=== PATIENT | female | born 1960 | race Caucasian/White ===

== ENCOUNTER 2023-12-23 11:35 | Outpatient (AMB) | payer MEDICAID, SELFPAY ==
--- NOTE | 2023-12-23 11:09 | PD.ORTHTELE ---
Med/Allergies Allergies & Medications Allergies No Known Allergies Allergy (Verified 12/23/23 11:09) Medication Reconciliation docusate sodium 100 mg capsule (Colace) 100 mg PO DAILY #0 caps 08/19/16 [History Confirmed 12/23/23] lovastatin 20 mg tablet 20 mg PO QPM 05/10/17 [History Confirmed 12/23/23] doxepin 50 mg capsule 100 mg PO HS 11/15/17 [History Confirmed 12/23/23] Subjective Visit Visit for: follow up visit and x-rays Immunization / Flu Flu Vaccine in the Last 12 Months: No Flu Vaccine Exclusion Criteria: No Exclusion Criteria History of Present Illness Chief complaint: XRAY RESULTS [place] is a 63-year-old female who is approximately 2 years out from surgery. She has problems with her right knee. She had difficulty coming into my office as she went to my prior office with my prior employer and had difficulty getting in. She is now 2 years out and she reports that her knee Goes outward and she has anterior knee pain. Personal History Red flag PMH: smoker Pain Pain level (0-10): 6 Pain duration: COMES AND GOES Pain location: inside (medial) Pain quality: aching Pain timing: increases with activity Associated signs & symptoms: none Ambulatory data Ambulatory device: none Treatments Improvement with previous injections: No Improvement with PT: No Improvement with NSAIDS: no Review of Systems Review of Systems: All systems negative unless otherwise noted in HPI. 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 The components do appear to be adequately rotated. We obtained an ESR and CRP and they Are normal. I obtained x-rays. The patella reduced is reduced in extension but during the tunnel view it appears it is dislocated laterally. I discussed with her that patella maltracking is a very difficult problem. We discussed that although the components look good, the patella is tracking laterally and this is a soft tissue related issue. We would likely try a lateral retinacular release as well as medial imbrication. I discussed with her that she will be walks in extension for at least 4 to 6 weeks after this. I do not think a revision is needed right now of her components as the components look to be in great position on the CT scan. Office Procedures GNS Level of Care Nursing/Assessment Patient Status: Established Patient Nursing Assessment/Reassesment: Medication Reconciliation, Update PMH in EMR and Vital Signs Coordination of Care: Complex Care and Chronic Disease 1-5, Education Complex Pt/Fam, Consent,records obtained, informed consent, 1 Ins Authorization, Lab and Imaging orders, Results/Orders obtained and Staff clarify orders Established Patient Charge Established Patient Point Assignment: 125 Telehealth Telemed Phone/Video with patient at home & Dr,PA,SCREW DRIVER OPERATOR: Yes
== END 2023-12-23 11:59 | disposition home or self-care (01) ==
LOC: HODSRG 11:35
PROVIDERS: PCP Family Medicine; Referring Provider Family Medicine; Supervising Provider Orthopaedic Surgery Adult Reconstructive Orthopaedic Surgery; Visit Provider Orthopaedic Surgery Adult Reconstructive Orthopaedic Surgery
DX: M22.8X1 Other disorders of patella, right knee (principal); Z96.659 Presence of unspecified artificial knee joint
CPT/HCPCS: 99212; G0463

== ENCOUNTER 2024-02-01 10:53 | Outpatient (AMB) | payer MEDICAID, SELFPAY ==
[2024-02-01 11:26] VITALS: BP 116/82; PULSE 93; RESP 18; TEMP 36.4; O2SAT 98; BMI 32.1
--- NOTE | 2024-02-01 11:26 | PD.ORTHCLVIS ---
Vital signs 02/01/24 11:26 Height 1.65 m Height Method Stated Weight 87.628 kg Weight Measurement Method Standing Scale BMI 32.1 BP 116/82 Blood Pressure Source Automatic Cuff Blood Pressure Location Left Upper Arm Position Sitting Respiration 18 Pulse 93 Pulse Source Monitor Temp 97.6 F Temp Source Oral Pulse Oximetry (%) 98 Oxygen Delivery Method Room Air Med/Allergies Allergies & Medications Allergies No Known Allergies Allergy (Verified 01/10/24 13:13) Subjective Visit Visit for: follow up visit, post op #1 and knee Immunization / Flu Flu Vaccine in the Last 12 Months: No Flu Vaccine Exclusion Criteria: Already Received History of Present Illness Chief complaint: PT HERE IN OFFICE FOR POST OP KNEE SURGERY Patient is doing well status post medial imbrication lateral release. She is doing well. She was wearing a knee immobilizer for 3 months. She has been doing gentle range of motion and has minimal pain. She is happy with how her knee looks cosmetically compared to before Pain Pain level (0-10): 9 Pain duration: CONSTANT Pain location: inside (medial), outside (lateral), anterior and posterior Pain quality: sharp Pain timing: night Associated signs & symptoms: stiffness Ambulatory data Ambulatory device: other (specify) (WEARING BRACE) Review of Systems Review of Systems: All systems negative unless otherwise noted in HPI. Exam Exam Patient is in no acute distress and is cooperative with the examination today. Breathing is nonlabored. Patient has a normal mood and affect. The patient has a gait that is Antalgic Bilateral extremities were evaluated and demonstrates sensation intact to light touch. Palpable pedal pulses are present. No significant edema is present. Bilateral hips were examined. The patient has no pain with log roll of the hips. Internal rotation to 30 degrees and external rotation to 30 degrees is painless. Negative FADIR. Left knee was examined today. The left knee is in reasonable alignment. Range of motion from 0-120 degrees. Knee is stable to varus and valgus as well as AP translation with <5mm. Patient has a negative McMurrays. There is no pain with patellofemoral compression and no crepitus noted. The knee is nontender to palpation. The right knee was also examined. Right knee incisions clean dry intact. Patella tracks centrally Assessment and Plan Problem List (1) Patellar maltracking: Status: Acute Plan: Patient is doing well status post right knee medial imbrication lateral lease. She is doing well. She should continue to work with home exercises at home. We were not sent her to formal physical therapy at this time because she is doing well and is walking well Office Procedures GNS Level of Care Nursing/Assessment Patient Status: Established Patient Nursing Assessment/Reassesment: BP Monitoring, Medication Reconciliation, Update PMH in EMR and Vital Signs Coordination of Care: Complex Care and Chronic Disease 1-5, Consent,records obtained, informed consent, Lab and Imaging orders and Results/Orders obtained Established Patient Charge Established Patient Point Assignment: 95 Established Patient Point Charge: EP Level 3 (80-115) Past Medical History Past Medical History Have you ever been diagnosed with any of the following: Neurological Problems Parkinson's Disease: No Seizures: No Cardiology Problems Hypercholesterolemia: Yes Congestive Heart Failure: No Respiratory Problems Chronic Obstructive Pulmonary Disease (COPD): No Smoking: Yes (VAPES) Smoking Exposure: Yes Stomache/Intestinal Problems Gastrointestinal Bleed: No Ulcerative Colitis: Yes Diverticulitis: Yes Hemorrhoids: Yes (TAKES MED) Obesity: Yes Genital/Urinary Problems Renal Disease: No Reproductive Problems Pelvic Inflammatory Disease: No Previous Pregnancies: Yes (X4) Musculoskeletal Problems Arthritis: Yes Carpal Tunnel Syndrome: Yes Fractures: Yes (FELL OFF HORSE 07/09 HAD PUNCTURED LUNG HOSP,FX RIBS) Endocrine Problems Diabetes Mellitus Type 1: No Diabetes Mellitus Type 2: No Psychologic Problems Depression: Yes Anxiety: Yes Other Problems Hospitalization: Yes (07/09 FELL OFF HORSE) Falls: Yes (yes becouse of right knee) Blood Transfusions: No Blood Transfusion Reaction: No Anesthesia Reactions: No MRSA: No Chicken Pox: Yes Cancer: No Surgical History Total Knee Replacement: Yes (RIGHT (03/2021)) Hysterectomy: Yes (ALANA SALP)
== END 2024-02-01 11:35 | disposition home or self-care (01) ==
LOC: HODSRG 10:53
PROVIDERS: PCP Family Medicine; Referring Provider Family Medicine; Supervising Provider Orthopaedic Surgery Adult Reconstructive Orthopaedic Surgery; Visit Provider Orthopaedic Surgery Adult Reconstructive Orthopaedic Surgery
DX: Z98.890 Other specified postprocedural states (principal); E78.00 Pure hypercholesterolemia, unspecified
CPT/HCPCS: 99213; G0463

== ENCOUNTER → 2024-02-21 | Outpatient (CLI) | payer MEDICAID, SELFPAY ==
--- NOTE | 2024-02-21 12:53 | XR_ITS ---
Examination: Right knee 2 views Technique one AP lateral right knee standing 2 views Exam date and time: February 21, 2024 1317 hours INDICATIONS: Right knee replacement January 10, 2024 FINDINGS: Total right knee arthroplasty. Satisfactory alignment. Moderate osteopenia. No fracture IMPRESSION:: Total right knee arthroplasty with satisfactory alignment
== END | disposition home or self-care (01) ==
LOC: CDIM 12:42
PROVIDERS: Referring Provider Orthopaedic Surgery Adult Reconstructive Orthopaedic Surgery; Visit Provider Orthopaedic Surgery Adult Reconstructive Orthopaedic Surgery
DX: M17.11 Unilateral primary osteoarthritis, right knee (principal); Z96.651 Presence of right artificial knee joint
CPT/HCPCS: 73560

== ENCOUNTER 2024-02-22 10:02 | Outpatient (AMB) | payer MEDICAID, SELFPAY ==
[2024-02-22 10:48] VITALS: BP 114/79; PULSE 93; RESP 19; TEMP 36.7; O2SAT 94; BMI 31.5
--- NOTE | 2024-02-22 10:48 | PD.ORTHCLVIS ---
Vital signs 02/22/24 10:48 Height 1.65 m Height Method Stated Weight 85.899 kg Weight Measurement Method Standing Scale BMI 31.5 BP 114/79 Blood Pressure Source Automatic Cuff Blood Pressure Location Right Upper Arm Position Sitting Respiration 19 Pulse 93 Pulse Source Monitor Temp 98.0 F Temp Source Temporal Artery Scan Pulse Oximetry (%) 94 L Med/Allergies Allergies & Medications Allergies No Known Allergies Allergy (Verified 02/22/24 10:49) Medication Reconciliation docusate sodium 100 mg capsule (Colace) 100 mg PO DAILY #0 caps 08/19/16 [History Confirmed 02/22/24] doxepin 50 mg capsule 100 mg PO HS 11/15/17 [History Confirmed 02/22/24] methocarbamol 500 mg tablet 100 mg PO TID PRN Pain 01/07/24 [History Confirmed 02/22/24] simvastatin 20 mg tablet 20 mg PO QPM 01/07/24 [History Confirmed 02/22/24] acetaminophen 500 mg tablet (Acetaminophen Extra Strength) 1,000 mg (2 x 500 mg) PO Q6H PRN pain #90 tabs 01/10/24 [Rx Confirmed 02/22/24] aspirin 81 mg tablet,delayed release 81 mg PO BID #60 tabs 01/10/24 [Rx Confirmed 02/22/24] doxycycline hyclate 100 mg tablet 100 mg PO BID #14 tabs 01/10/24 [Rx Confirmed 02/22/24] gabapentin 300 mg capsule 300 mg PO .qhs #30 caps 01/10/24 [Rx Confirmed 02/22/24] sennosides 8.6 mg-docusate sodium 50 mg tablet (Senna-S) 1 tab-cap PO QDAY #30 tabs 01/10/24 [Rx Confirmed 02/22/24] oxycodone 5 mg tablet 5 mg PO Q6H PRN pain #28 tabs 02/22/24 [Rx] Exam Exam Patient is in no acute distress and is cooperative with the examination today. Breathing is nonlabored. Patient has a normal mood and affect. The patient has a gait that is Antalgic Bilateral extremities were evaluated and demonstrates sensation intact to light touch. Palpable pedal pulses are present. No significant edema is present. Bilateral hips were examined. The patient has no pain with log roll of the hips. Internal rotation to 30 degrees and external rotation to 30 degrees is painless. Negative FADIR. The right knee was also examined. Right knee incisions clean dry intact. Patella tracks centrally Assessment and Plan Problem List (1) Patellar maltracking: Status: Acute Plan: Patient is doing well status post right knee medial imbrication lateral lease. She is doing well. She should continue to work with home exercises at home. Her x-rays look great and the patella is centralized. We will see her back in approximately 6 weeks Office Procedures GNS Level of Care Nursing/Assessment Patient Status: Established Patient Nursing Assessment/Reassesment: Medication Reconciliation, Update PMH in EMR and Vital Signs Coordination of Care: Complex Care and Chronic Disease 1-5, Education Complex Pt/Fam, Consent,records obtained, informed consent, Results/Orders obtained and Staff clarify orders Established Patient Charge Established Patient Point Assignment: 95 Established Patient Point Charge: EP Level 3 (80-115) MA Intake Visit Data Collection New Patient or Established: Established Patient (seen at [facility] within 3 years) Reason for Visit:: 3 WEEK FOLLOW UP Seen by Clinical Staff ONLY (RN/MA): No Verbal consent obtained for Telemed visit?: No Mold Stacker Required: No PCP or OBGYN visit in last 3 months: Yes Hx Now: No Do You Feel Safe at Home: Yes Authorities Contacted: N/A Questionairres Past Medical History Past Medical History Have you ever been diagnosed with any of the following: Neurological Problems Parkinson's Disease: No Seizures: No Cardiology Problems Hypercholesterolemia: Yes Congestive Heart Failure: No Respiratory Problems Chronic Obstructive Pulmonary Disease (COPD): No Smoking: Yes (VAPES) Smoking Exposure: Yes Stomache/Intestinal Problems Gastrointestinal Bleed: No Ulcerative Colitis: Yes Diverticulitis: Yes Hemorrhoids: Yes (TAKES MED) Obesity: Yes Genital/Urinary Problems Renal Disease: No Reproductive Problems Pelvic Inflammatory Disease: No Previous Pregnancies: Yes (X4) Musculoskeletal Problems Arthritis: Yes Carpal Tunnel Syndrome: Yes Fractures: Yes (FELL OFF HORSE 07/09 HAD PUNCTURED LUNG HOSP,FX RIBS) Endocrine Problems Diabetes Mellitus Type 1: No Diabetes Mellitus Type 2: No Psychologic Problems Depression: Yes Anxiety: Yes Other Problems Hospitalization: Yes (07/09 FELL OFF HORSE) Falls: Yes (yes becouse of right knee) Blood Transfusions: No Blood Transfusion Reaction: No Anesthesia Reactions: No MRSA: No Chicken Pox: Yes Cancer: No Surgical History Total Knee Replacement: Yes (RIGHT (03/2021)) Hysterectomy: Yes (ALANA SALP) Subjective Visit Visit for: follow up visit and knee Immunization / Flu Flu Vaccine in the Last 12 Months: No Flu Vaccine Exclusion Criteria: No Exclusion Criteria History of Present Illness Chief complaint: 3 WEEK FOLLOW UP Patient is 6 weeks out status post Lateral release and medial right knee. Patient is doing well. She reports the knee is no longer having the patella dislocate. Pain Pain level (0-10): 4 Pain duration: COMES AND GOES Pain location: anterior and posterior Pain quality: sharp, dull and aching Pain timing: increases with activity Ambulatory data Ambulatory device: none Treatments Improvement with previous injections: No Improvement with PT: No Improvement with NSAIDS: n/a Review of Systems Review of Systems: All systems negative unless otherwise noted in HPI.
== END 2024-02-22 11:33 | disposition home or self-care (01) ==
LOC: HODSRG 10:02
PROVIDERS: PCP Family Medicine; Referring Provider Family Medicine; Supervising Provider Orthopaedic Surgery Adult Reconstructive Orthopaedic Surgery; Visit Provider Orthopaedic Surgery Adult Reconstructive Orthopaedic Surgery
DX: Z48.89 Encounter for other specified surgical aftercare (principal); M22.8X1 Other disorders of patella, right knee; E78.00 Pure hypercholesterolemia, unspecified
CPT/HCPCS: 99213; G0463

== ENCOUNTER 2024-02-29 07:10 | Day surgery (SDC) | payer MEDICAID, SELFPAY ==
[2024-02-28 08:21] VITALS: BMI 35.4
[2024-02-28 09:54] LABS: Basophils # (Auto) 0.1 Thou/mm3 (0.0-0.2); Basophils % (Auto) 1 % (0-2.5); Eosinophils # (Auto) 0.3 Thou/mm3 (0.0-0.5); Eosinophils % (Auto) 4 % (0-10); Hematocrit 40.8 % (36.0-46.0); Hemoglobin 13.3 g/dL (12.0-16.0); Immature Granulocytes % (Auto) 0 % (0-0); Immature Granulocytes Auto 0.02 Thou/mm3 (0.00-0.00); Lymphocytes # (Auto) 2.1 Thou/mm3 (1.0-4.8); Lymphocytes % (Auto) 26 % (10-50); Mean Corpuscular HGB Conc 32.6 g/dl (31.0-37.0); Mean Corpuscular Hemoglobin 27.9 pg (25.0-35.0); Mean Corpuscular Volume 86 fL (80-100); Monocytes # (Auto) 0.5 Thou/mm3 (0.0-0.8); Monocytes % (Auto) 7 % (0-12); Neutrophils # (Auto) 4.9 Thou/mm3 (1.8-7.7); Neutrophils % (Auto) 62 % (37-80); Nucleated Red Blood Cell % 0 /100 WBC (0); Platelet Count 395 Thou/mm3 (140-440); RDW Standard Deviation 43.5 fL (36.4-46.3); Red Blood Count 4.77 Miln/mm3 (4.00-5.20); White Blood Count 7.9 Thou/mm3 (3.6-11.0)
[2024-02-28 09:57] LABS: Alanine Aminotransferase 15 U/L (10-49); Albumin, Serum 4.3 gm/dL (3.4-4.8); Albumin/Globulin Ratio 1.6 (1.2-2.2); Alkaline Phosphatase 119 U/L (46-116); Anion Gap 7 (7-16); Aspartate Amino Transferase 21 U/L (0-34); BUN/Creatinine Ratio 16 Ratio (12-20); Bilirubin,Total 0.2 mg/dL (0.3-1.2); Blood Urea Nitrogen 13 mg/dL (9-23); Calcium 9.4 mg/dL (8.3-10.6); Calcium (Corrected) 9.4 mg/dL (8.5-10.1); Carbon Dioxide 26.9 mMol/L (20.0-31.0); Chloride 106 mMol/L (98-107); Creatinine (Component) 0.8 mg/dL (0.6-1.3); Estimated Creatinine Clearance 73.2 mL/min (>60); Globulin 2.7 gm/dL (2.3-3.5); Glucose 107 mg/dL (74-106); Osmolality,Calculated 279 (275-295); Potassium 4.4 mMol/L (3.4-5.1); Sodium 140 mMol/L (136-145); eGFR > 60 See Note
[2024-02-28 09:58] LABS: Partial Thromboplastin Time 28.6 Seconds (22.0-36.0); Prothrombin Time 11.4 Seconds (9.0-12.2)
--- NOTE | 2024-02-28 13:25 | SUR.PREOP ---
Pt notified to come in at 0730 tomorrow for surgery.
[2024-02-29 07:48] VITALS: BP 107/65; PULSE 68; RESP 17; TEMP 36.6; O2SAT 96; BMI 34.9
[2024-02-29] MEDS: RINGERS LACTATED 1000 ML 1,000 ML 20 ML IV (08:09)
--- NOTE | 2024-02-29 09:31 | CHAP ---
Visited with patient briefly giving encouragement and prayer.
[2024-02-29 10:44] VITALS: BP 124/55; PULSE 98; RESP 20; TEMP 36.4; O2SAT 95
--- NOTE | 2024-02-29 10:44 | SUR.PHASEI ---
pt received from OR in recovery bay 8. pt awake and alert, breathing unlabored on room air. v/s stable. pt dressing to left upper abd cdi. report received from Dr. Petersen and Genna BASILIO.
--- NOTE | 2024-02-29 10:48 | ESOP_ITS ---
Date of Procedure 02/29/24 Pre Op Diagnosis Soft tissue mass abdominal wall Post Op Diagnosis Same, lipoma Procedure Excision of the soft tissue mass over the abdominal wall in the left upper quadrant Findings Patient was found to have multilobulated lipoma located underneath the skin on the left upper quadrant Procedure Description After the patient was brought to the operating room LMA anesthesia was given. The area was washed with ChloraPrep solution draped in a sterile manner. Timeout is performed. Then injected half percent Marcaine and then made a transverse incision in the left upper quadrant. Using Cheri retractors and [employer]- Jarrell I dissected out the subcutaneous mass which turned out to be a lipoma with a lobulation. It was not well-circumscribed but it was from underlying fascia easily. After it was removed the subcutaneous tissue was closed with 3-0 chromic and then the skin by 4-0 Monocryl subcuticular stitch. Dressing was applied with Adaptic and 4 x 4 gauze and patient tolerated the procedure well and left operating room in stable condition Anesthesia other (General LMA) Pathology / specimen Other (Lipoma left) IVF Infused 600 Estimated Blood Loss 10 Surgeon Lima Nickerson MD Surgical Staff Operation Date: 02/29/24 10:15 Case Staff Anesthesiologist: Zoran Petersen RNproduction department supervisor: Sushila Lange
[2024-02-29 10:50] VITALS: BP 119/60; PULSE 97; RESP 18; TEMP 36.4; O2SAT 96
[2024-02-29 10:55] VITALS: BP 109/71; PULSE 96; RESP 19; TEMP 36.4; O2SAT 95
--- NOTE | 2024-02-29 10:56 | SUR.PHASEI ---
pt able to tolerate oral fluids without difficulty swallowing or nausea/vomiting.
[2024-02-29 11:00] VITALS: BP 112/51; PULSE 93; RESP 19; TEMP 36.5; O2SAT 95
[2024-02-29 11:15] VITALS: BP 111/58; PULSE 91; RESP 18; TEMP 36.4; O2SAT 95
--- NOTE | 2024-02-29 11:24 | SUR.PHASEII ---
pt awake and alert, breathing unlabored on room air. v/s stable. pt dressing to left abd cdi. pt able to ambulate to wheelchair with steady gait. d/c instructions given with daughter Barbara in room, all questions answered. pt d/c via wheelchair with all belongings.
== END 2024-02-29 11:24 | disposition home or self-care (01) ==
PROVIDERS: PCP Family Medicine; Referring Provider Surgery; Visit Provider Surgery
PROC: (CPT 22903; principal; 2024-02-29 10:00)
DX: D17.1 Benign lipomatous neoplasm of skin and subcutaneous tissue of trunk (principal)
CPT/HCPCS: 22903; 36415; 80053; 85025; 85610; 85730; A4217; A4649; J1100; J2371; J2704; J2765; J3010; J3490; J7120; J1596

== ENCOUNTER 2024-04-21 13:25 | Outpatient (AMB) | payer MEDICAID, SELFPAY ==
[2024-04-21 13:32] VITALS: BP 136/86; PULSE 91; RESP 18; TEMP 36.3; O2SAT 97; BMI 34.7
--- NOTE | 2024-04-21 13:32 | ORTHONT_ITS ---
Vital signs 04/21/24 13:32 Height 1.6 m Height Method Stated Weight 88.904 kg Weight Measurement Method Standing Scale BMI 34.7 BP 136/86 H Blood Pressure Source Automatic Cuff Blood Pressure Location Right Lower Arm Position Sitting Respiration 18 Pulse 91 Pulse Source Monitor Temp 97.4 F Temp Source Temporal Artery Scan Pulse Oximetry (%) 97 Oxygen Delivery Method Room Air Med/Allergies Allergies & Medications Allergies No Known Allergies Allergy (Verified 04/21/24 13:33) Medication Reconciliation docusate sodium 100 mg capsule (Colace) 100 mg PO DAILY #0 caps 08/19/16 [History Confirmed 04/21/24] doxepin 50 mg capsule 100 mg PO HS 11/15/17 [History Confirmed 04/21/24] simvastatin 20 mg tablet 20 mg PO QPM 01/07/24 [History Confirmed 04/21/24] methocarbamol 750 mg tablet 750 mg PO TID PRN Muscle Spasm 02/28/24 [History Confirmed 04/21/24] Exam Exam Patient is in no acute distress and is cooperative with the examination today. Breathing is nonlabored. Patient has a normal mood and affect. The patient has a gait that is Antalgic Bilateral extremities were evaluated and demonstrates sensation intact to light touch. Palpable pedal pulses are present. No significant edema is present. Bilateral hips were examined. The patient has no pain with log roll of the hips. Internal rotation to 30 degrees and external rotation to 30 degrees is painless. Negative FADIR. The right knee was also examined. Right knee incisions clean dry intact. Patella tracks centrally Assessment and Plan Problem List (1) Patellar maltracking: Status: Acute Plan: Patient is doing well status post right knee medial imbrication lateral lease. She is doing well. Her patella is nicely centered. We will see her in 3 months with new x-ray Office Procedures GNS Level of Care Nursing/Assessment Patient Status: Established Patient Nursing Assessment/Reassesment: Medication Reconciliation, Update PMH in EMR and Vital Signs Coordination of Care: Complex Care and Chronic Disease 1-5, Education Complex Pt/Fam, Consent,records obtained, informed consent, Results/Orders obtained and Staff clarify orders Established Patient Charge Established Patient Point Assignment: 95 Established Patient Point Charge: EP Level 3 (80-115) MA Intake Visit Data Collection New Patient or Established: Established Patient (seen at [facility] within 3 years) Reason for Visit:: 3 WEEK F/U KNEE Repeater Operator Required: No PCP or OBGYN visit in last 3 months: Yes Hx Now: No Do You Feel Safe at Home: Yes Authorities Contacted: N/A Questionairres Past Medical History Past Medical History Have you ever been diagnosed with any of the following: Neurological Problems Parkinson's Disease: No Seizures: No Cardiology Problems Hypercholesterolemia: Yes Congestive Heart Failure: No Respiratory Problems Chronic Obstructive Pulmonary Disease (COPD): No Smoking: Yes (VAPES) Smoking Exposure: Yes Stomache/Intestinal Problems Gastrointestinal Bleed: No Ulcerative Colitis: Yes Diverticulitis: Yes Hemorrhoids: Yes (TAKES MED) Obesity: Yes Genital/Urinary Problems Renal Disease: No Reproductive Problems Pelvic Inflammatory Disease: No Previous Pregnancies: Yes (X4) Musculoskeletal Problems Arthritis: Yes Carpal Tunnel Syndrome: Yes Fractures: Yes (FELL OFF HORSE 07/09 HAD PUNCTURED LUNG HOSP,FX RIBS) Endocrine Problems Diabetes Mellitus Type 1: No Diabetes Mellitus Type 2: No Psychologic Problems Depression: Yes Anxiety: Yes Other Problems Hospitalization: Yes (07/09 FELL OFF HORSE) Falls: Yes (yes becouse of right knee) Blood Transfusions: No Blood Transfusion Reaction: No Anesthesia Reactions: No MRSA: No Chicken Pox: Yes Cancer: No Surgical History Total Knee Replacement: Yes (RIGHT (03/2021)) Hysterectomy: Yes (ALANA SALP) Subjective Visit Visit for: follow up visit and knee Immunization / Flu Flu Vaccine in the Last 12 Months: No Flu Vaccine Exclusion Criteria: Refused by Patient History of Present Illness Chief complaint: 3 WEEK FOLLOW UP Patient is 6 weeks out status post Lateral release and medial right knee. Patient is doing well. She reports that the patella feels nice and centered. She is riding horses and has minimal pain. Personal History Red flag PMH: smoker (VAPES) Pain Pain level (0-10): 3 Pain duration: COMES AND GOES Pain location: outside (lateral) Pain quality: aching Pain timing: night and stairs Associated signs & symptoms: weakness and stiffness Ambulatory data Ambulatory device: none Treatments Improvement with previous injections: No Improvement with PT: No Improvement with NSAIDS: n/a Review of Systems Review of Systems: All systems negative unless otherwise noted in HPI.
== END 2024-04-21 13:51 | disposition home or self-care (01) ==
LOC: HODSRG 13:25
PROVIDERS: Supervising Provider Orthopaedic Surgery Adult Reconstructive Orthopaedic Surgery; Visit Provider Orthopaedic Surgery Adult Reconstructive Orthopaedic Surgery
DX: Z09 Encounter for follow-up examination after completed treatment for conditions other than malignant neoplasm (principal); Z87.39 Personal history of other diseases of the musculoskeletal system and connective tissue; Z98.890 Other specified postprocedural states
CPT/HCPCS: 99213; G0463

== ENCOUNTER 2024-07-20 08:44 | Outpatient (AMB) | payer MEDICAID, SELFPAY ==
[2024-07-20 09:00] VITALS: BP 133/79; PULSE 85; RESP 18; TEMP 36.4; BMI 34.0
--- NOTE | 2024-07-20 09:00 | PD.ORTHCLVIS ---
Vital signs 07/20/24 09:00 Height 1.6 m Height Method Stated Weight 87.26 kg Weight Measurement Method Standing Scale BMI 34.0 BP 133/79 H Blood Pressure Source Automatic Cuff Blood Pressure Location Right Upper Arm Position Sitting Respiration 18 Pulse 85 Pulse Source Monitor Temp 97.6 F Temp Source Temporal Artery Scan Oxygen Delivery Method Room Air Med/Allergies Allergies & Medications Allergies No Known Allergies Allergy (Verified 07/20/24 09:11) Medication Reconciliation docusate sodium 100 mg capsule (Colace) 100 mg PO DAILY #0 caps 08/19/16 [History Confirmed 07/20/24] doxepin 50 mg capsule 100 mg PO HS 11/15/17 [History Confirmed 07/20/24] simvastatin 20 mg tablet 20 mg PO QPM 01/07/24 [History Confirmed 07/20/24] methocarbamol 750 mg tablet 750 mg PO TID PRN Muscle Spasm 02/28/24 [History Confirmed 07/20/24] oxycodone 5 mg tablet 5 mg PO Q6H PRN pain #28 tabs 04/21/24 [Rx Confirmed 07/20/24] Office Procedures GNS Level of Care Nursing/Assessment Patient Status: Established Patient Nursing Assessment/Reassesment: Medication Reconciliation, Update PMH in EMR and Vital Signs Coordination of Care: Complex Care and Chronic Disease 1-5, Education Complex Pt/Fam, Consent,records obtained, informed consent, Results/Orders obtained and Staff clarify orders Established Patient Charge Established Patient Point Assignment: 95 Established Patient Point Charge: Level 3 (80-115) MA Intake Visit Data Collection New Patient or Established: Established Patient (seen at [facility] within 3 years) Reason for Visit:: POST OP Seen by Clinical Staff ONLY (RN/MA): No Verbal consent obtained for Telemed visit?: No Manager Social Services Required: No PCP or OBGYN visit in last 3 months: Yes Hx Now: No Do You Feel Safe at Home: Yes Authorities Contacted: N/A Questionairres Past Medical History Past Medical History Have you ever been diagnosed with any of the following: Neurological Problems Parkinson's Disease: No Seizures: No Cardiology Problems Hypercholesterolemia: Yes Congestive Heart Failure: No Respiratory Problems Chronic Obstructive Pulmonary Disease (COPD): No Smoking: Yes (VAPES) Smoking Exposure: Yes Stomache/Intestinal Problems Gastrointestinal Bleed: No Ulcerative Colitis: Yes Diverticulitis: Yes Hemorrhoids: Yes (TAKES MED) Obesity: Yes Genital/Urinary Problems Renal Disease: No Reproductive Problems Pelvic Inflammatory Disease: No Previous Pregnancies: Yes (X4) Musculoskeletal Problems Arthritis: Yes Carpal Tunnel Syndrome: Yes Fractures: Yes (FELL OFF HORSE 07/09 HAD PUNCTURED LUNG HOSP,FX RIBS) Endocrine Problems Diabetes Mellitus Type 1: No Diabetes Mellitus Type 2: No Psychologic Problems Depression: Yes Anxiety: Yes Other Problems Hospitalization: Yes (07/09 FELL OFF HORSE) Falls: Yes (yes becouse of right knee) Blood Transfusions: No Blood Transfusion Reaction: No Anesthesia Reactions: No MRSA: No Chicken Pox: Yes Cancer: No Surgical History Total Knee Replacement: Yes (RIGHT (03/2021)) Hysterectomy: Yes (ALANA SALP) Subjective Visit Visit for: follow up visit Immunization / Flu Flu Vaccine in the Last 12 Months: No Flu Vaccine Exclusion Criteria: No Exclusion Criteria History of Present Illness Chief complaint: POST OP FOLLOW UP Personal History Red flag PMH: BMI BMI Counceling provided: Yes Pain Pain level (0-10): 10 Pain duration: WITH ACTVITY Pain location: outside (lateral) and anterior Pain quality: sharp, dull and aching Pain timing: increases with activity Associated signs & symptoms: none Ambulatory data Ambulatory device: none Treatments Improvement with previous injections: No Improvement with PT: No Improvement with NSAIDS: no Review of Systems Review of Systems: All systems negative unless otherwise noted in HPI.
--- NOTE | 2024-07-20 09:35 | XR_ITS ---
Examination:Right hip AP, lateral, AP pelvis 3 views Technique: Hip AP lateral, AP pelvis, 3 views Exam date and time:July 20, 2024 0939 hours INDICATIONS: Right hip pain beginning 2 months ago. FINDINGS: No right hip fracture or hip dislocation Minimal bilateral hip osteoarthritis Left hip bones of the pelvis intact IMPRESSION: Minimal bilateral hip osteoarthritis
--- NOTE | 2024-07-20 09:35 | XR_ITS ---
Examination: Lumbar spine 3 views Technique one AP lateral coned lateral lower lumbar spine 3 views Date and time: July 20, 2024 0952 hours INDICATIONS: Low back pain beginning 6 months ago. FINDINGS: Adequate alignment lumbar vertebral bodies on the lateral view Prominent osteopenia No lumbar fracture Diffuse lumbar disc narrowing, advanced L1-L2 with subarticular sclerosis No spondylolisthesis IMPRESSION: Advanced degenerative disc disease L1-L2 Mild to moderate lumbar disc narrowing lower 4 lumbar levels
--- NOTE | 2024-07-20 09:35 | XR_ITS ---
Examination: Bilateral knees single view PA, lateral axial right knee 3 views TECHNIQUE: Bilateral AP knees standing single view Right knee PA standing, right knee lateral standing, right knee axial 3 views total 4 views Date and time: July 20, 2024 0939 hours INDICATIONS: Right knee pain post knee replacement December 2023 FINDINGS: Bilateral total knee arthroplasties. Satisfactory alignment. No loosening of the prosthetic components Recommend repeating the axial view right knee to confirm proper position of the patella IMPRESSION: Bilateral total knee arthroplasties with no evidence of loosening prosthetic components Recommend repeating the axial view right knee
== END 2024-07-20 09:40 | disposition home or self-care (01) ==
LOC: HODSRG 08:44
PROVIDERS: Supervising Provider Orthopaedic Surgery Adult Reconstructive Orthopaedic Surgery; Visit Provider Orthopaedic Surgery Adult Reconstructive Orthopaedic Surgery
DX: Z47.1 Aftercare following joint replacement surgery (principal); Z96.651 Presence of right artificial knee joint; M51.369 Other intervertebral disc degeneration, lumbar region without mention of lumbar back pain or lower extremity pain; M48.061 Spinal stenosis, lumbar region without neurogenic claudication; M16.0 Bilateral primary osteoarthritis of hip
CPT/HCPCS: 72100; 73502; 73564; 99213; G0463

== ENCOUNTER 2024-08-08 09:19 | Outpatient (AMB) | payer MEDICAID, SELFPAY ==
--- NOTE | 2024-08-08 09:54 | PD.ORTHCLVIS ---
Vital signs 08/08/24 09:56 Height 1.6 m Height Method Stated Weight 86.211 kg Weight Measurement Method Standing Scale BMI 33.7 BP 118/84 Blood Pressure Source Automatic Cuff Blood Pressure Location Left Upper Arm Position Sitting Respiration 18 Pulse 79 Pulse Source Monitor Temp 97.4 F Temp Source Temporal Artery Scan Pulse Oximetry (%) 95 Oxygen Delivery Method Room Air Med/Allergies Allergies & Medications Allergies No Known Allergies Allergy (Verified 08/08/24 09:57) Medication Reconciliation docusate sodium 100 mg capsule (Colace) 100 mg PO DAILY #0 caps 08/19/16 [History Confirmed 08/08/24] doxepin 50 mg capsule 100 mg PO HS 11/15/17 [History Confirmed 08/08/24] simvastatin 20 mg tablet 20 mg PO QPM 01/07/24 [History Confirmed 08/08/24] methocarbamol 750 mg tablet 750 mg PO TID PRN Muscle Spasm 02/28/24 [History Confirmed 08/08/24] meloxicam 7.5 mg tablet 7.5 mg PO QDAY #45 tabs 07/20/24 [Rx Confirmed 08/08/24] oxycodone 5 mg tablet 5 mg PO Q6H PRN pain #28 tabs 07/20/24 [Rx Confirmed 08/08/24] Exam Exam Patient is in no acute distress and is cooperative with the examination today. Breathing is nonlabored. Patient has a normal mood and affect. The patient has a gait that is Antalgic Bilateral extremities were evaluated and demonstrates sensation intact to light touch. Palpable pedal pulses are present. No significant edema is present. Bilateral hips were examined. The patient has no pain with log roll of the hips. Internal rotation to 30 degrees and external rotation to 30 degrees is painless. Negative FADIR. The right knee was also examined. Right knee incisions clean dry intact. Patella tracks centrally Right spine films demonstrate significant degeneration at L2-3. The right hip demonstrates mild arthritis. Right knee x-rays demonstrate total knee replacement in alignment position. Assessment and Plan Problem List (1) Patellar maltracking: Status: Acute Plan: Patient is doing well status post right knee medial imbrication lateral lease. She is doing well. Her patella is nicely centered. She is doing well and we can see her back in approximately 1 year. She is happy With her recovery after the lateral release and medial implication Office Procedures GNS Level of Care Nursing/Assessment Patient Status: Established Patient Nursing Assessment/Reassesment: Medication Reconciliation, Update PMH in EMR and Vital Signs Coordination of Care: Complex Care and Chronic Disease 1-5, Education Complex Pt/Fam, Consent,records obtained, informed consent, Results/Orders obtained and Staff clarify orders Established Patient Charge Established Patient Point Assignment: 95 Established Patient Point Charge: EP Level 3 (80-115) MA Intake Visit Data Collection New Patient or Established: Established Patient (seen at [facility] within 3 years) Reason for Visit:: FU XRAYS Seen by Clinical Staff ONLY (RN/MA): No PCP or OBGYN visit in last 3 months: Yes Hx Now: No Do You Feel Safe at Home: Yes Authorities Contacted: N/A Questionairres Past Medical History Past Medical History Have you ever been diagnosed with any of the following: Neurological Problems Parkinson's Disease: No Seizures: No Cardiology Problems Hypercholesterolemia: Yes Congestive Heart Failure: No Respiratory Problems Chronic Obstructive Pulmonary Disease (COPD): No Smoking: Yes (VAPES) Smoking Exposure: Yes Stomache/Intestinal Problems Gastrointestinal Bleed: No Ulcerative Colitis: Yes Diverticulitis: Yes Hemorrhoids: Yes (TAKES MED) Obesity: Yes Genital/Urinary Problems Renal Disease: No Reproductive Problems Pelvic Inflammatory Disease: No Previous Pregnancies: Yes (X4) Musculoskeletal Problems Arthritis: Yes Carpal Tunnel Syndrome: Yes Fractures: Yes (FELL OFF HORSE 07/09 HAD PUNCTURED LUNG HOSP,FX RIBS) Endocrine Problems Diabetes Mellitus Type 1: No Diabetes Mellitus Type 2: No Psychologic Problems Depression: Yes Anxiety: Yes Other Problems Hospitalization: Yes (07/09 FELL OFF HORSE) Falls: Yes (yes becouse of right knee) Blood Transfusions: No Blood Transfusion Reaction: No Anesthesia Reactions: No MRSA: No Chicken Pox: Yes Cancer: No Surgical History Total Knee Replacement: Yes (RIGHT (03/2021)) Hysterectomy: Yes (ALANA SALP) Subjective Visit Visit for: follow up visit and x-rays Immunization / Flu Flu Vaccine in the Last 12 Months: No Flu Vaccine Exclusion Criteria: No Exclusion Criteria History of Present Illness Chief complaint: Right hip pain [place] is a 63-year-old female who is doing well status post right total knee replacement. Her patella tracks well and she is back on horses and is very happy. She had a lot of pain in her buttocks and going down her right thigh. We did order hip and spine films and she is here for x-ray follow-up. She reports the right knee pain is great and she has no issues with this. She is back riding horses Pain Pain level (0-10): 0 Treatments Improvement with previous injections: No Improvement with PT: No Improvement with NSAIDS: no Review of Systems Review of Systems: All systems negative unless otherwise noted in HPI.
[2024-08-08 09:56] VITALS: BP 118/84; PULSE 79; RESP 18; TEMP 36.3; O2SAT 95; BMI 33.7
== END 2024-08-08 10:10 | disposition home or self-care (01) ==
LOC: HODSRG 09:19
PROVIDERS: Supervising Provider Orthopaedic Surgery Adult Reconstructive Orthopaedic Surgery; Visit Provider Orthopaedic Surgery Adult Reconstructive Orthopaedic Surgery
DX: Z96.651 Presence of right artificial knee joint (principal); M25.561 Pain in right knee
CPT/HCPCS: 99213; G0463